=== PATIENT | female | born 1940 | race Caucasian/White ===

== ENCOUNTER 2022-05-11 17:46 | Emergency (ER) | payer OTHER ==
[2022-05-11 18:29] LABS: BASOPHIL 0.6 % (0-2); EOSINOPHIL 2.2 % (0-7); HCT 40.8 % (37.0-47.0); HGB 13.2 g/dl (12.5-16.0); LYMPHOCYTE 41.4 % (15-48); MCH 31.3 pg (25.0-31.0); MCHC 32.4 g/dL (32.0-36.0); MCV 96.7 fL (78.0-100.0); MONOCYTE 7.3 % (0-12); MPV 10.2 fL (6.0-9.5); NEUTROPHIL 48.2 % (41-80); NRBC 0; PLT 232 K/uL (150-400); RBC 4.22 M/uL (4.20-5.40); RDW 13.3 % (11.5-14.0)
[2022-05-11 18:44] LABS: ALBUMIN 4.1 g/dL (3.4-5.0); BILIRUBIN - TOTAL 0.9 mg/dL (0.2-1.0); BUN/CREAT RATIO (CALC) 30.8 RATIO; CREATININE 0.78 mg/dL (0.51-0.95); GLOBULIN (CALCULATION) 3.6 g/dL; POTASSIUM 4.6 mmol/L (3.5-5.1); TOTAL PROTEIN 7.7 g/dL (6.4-8.2)
[2022-05-11 18:52] LABS: BILIRUBIN NEGATIVE (NEGATIVE); BLOOD NEGATIVE Ery/uL (NEGATIVE); CLARITY CLEAR (CLEAR); COLOR YELLOW (YELLOW); GLUCOSE (U) NORMAL (NORMAL); LEUKOCYTES 1+ Leu/uL (NEGATIVE); NITRITE POSITIVE (NEGATIVE); PROTEIN TRACE (LOW) mg/dL (NEGATIVE)
[2022-05-11 19:00] LABS: BACTERIA 4+
[2022-05-11] MEDS ORDERED: KEFLEX250 MG PO (20:46)
== END 2022-05-11 20:58 | disposition home or self-care (01) ==
LOC: FER 17:46
PROVIDERS: Emergency Medicine
DX: I11.0 Hypertensive heart disease with heart failure (principal); I50.9 Heart failure, unspecified; N39.0 Urinary tract infection, site not specified; E11.9 Type 2 diabetes mellitus without complications; I48.91 Unspecified atrial fibrillation; Z28.310 Unvaccinated for COVID-19; Z95.0 Presence of cardiac pacemaker; Z79.01 Long term (current) use of anticoagulants; Z88.8 Allergy status to other drugs, medicaments and biological substances
CPT/HCPCS: 36415; 71045; 71250; 80053; 80162; 81001; 83880; 84145; 84484; 85025; 87076; 87088; 87186; 93005; J0696; J1940